=== PATIENT | male | born 1945 | race Caucasian/White ===

== ENCOUNTER → 2016-05-04 | Outpatient (CLI) | payer OTHER ==
[~2016-05-04] MED LIST: ATEN-173 PO; CALC500C3 PO; DXM/4 PO; MULTTAB58 PO; NYSS/ PO; OXYC-57 PO; OXYC15TA89 PO; OXYC20TA50 PO; OXYC7.5T65 PO; PANT40TA PO; POLY335019 PO; REGO40TA PO; SILV1CRE73 TOP; TRIA75TA PO; TRIF0.27 PO; ZNTT/150 PO
--- NOTE | 2016-05-04 09:23 | DIAGNOSTIC IMAGING REPORT ---
CHEST 2 VIEWS ROUTINE HISTORY: Right pleural effusion. Follow-up. COMPARISON: Chest 12/26/2015. FINDINGS: Small right pleural effusion persists. Right basilar airspace opacities have resolved. Small linear scarlike density within the lateral masses of the right lung base remains unchanged. Punctate calcified granulomas within the right lower lobe. No new focal lung consolidations to suggest pneumonia. No pneumothorax. Left subclavian Port-A-Cath terminates in the distal SVC. The heart is normal in size. IMPRESSION: 1. Small right pleural effusion, unchanged. 2. Interval resolution of the right lower lobe airspace opacity. Electronically signed by: Jose Ge M.D. 05/04/2016 9:21 AM Dictated Date/Time: 05/04/2016 9:19 AM
== END | disposition home or self-care (01) ==
LOC: C.RADBBURG 08:59
PROVIDERS: ATTEND Physician Assistant
DX: J90 Pleural effusion, not elsewhere classified (principal)

== ENCOUNTER → 2016-08-15 | Outpatient (CLI) | payer OTHER ==
[~2016-08-15] MED LIST changes: +OPTIRAY 320 IV PRN
--- NOTE | 2016-08-15 17:47 | DIAGNOSTIC IMAGING REPORT ---
CHEST , ABDOMEN AND PELVIS CT WITH CONTRAST CT DOSE: 707.48 mGy.cm HISTORY: Metastatic colon cancer. X TECHNIQUE: Multiaxial CT images of the chest, abdomen and pelvis were performed following the intravenous administration of contrast. Oral contrast was also administered. COMPARISON: Outside hospital chest CT 05/19/2015 and PET/CT 05/02/2015. FINDINGS: The central airways are patent. No pneumothorax. The right pleural effusion has resolved. Multiple scattered irregular nodules seen throughout the lungs consistent with metastatic disease. Dominant nodule seen within the superior segment of the right lower lobe and measures 1.8 cm. The majority of the right lung nodules were obscured on the prior study due to the large pleural effusion. The majority of the left lung nodules are similar to the prior study. There is a new 4 mm nodule within the left upper lobe on image 22 of 65. There is also a new 4 mm nodule within the left lower lobe on image 35. A prominent subcarinal lymph node is not suitably change which measures 12 mm in short axis diameter. No enlarged hilar lymph nodes. There are few bilateral calcified hilar lymph nodes. Multiple scattered pleural nodules within the right lung consistent with metastatic disease. Dominant pleural nodule measures 14 mm. Normal caliber thoracic aorta. The main pulmonary arteries are patent. A left Port-A-Cath terminates in the distal SVC. No hepatic or splenic masses. Bilateral adrenal gland nodules have increased in size. The right adrenal gland nodule measures 14 x 9 mm and the left adrenal gland nodule measures 2.4 x 1.3 cm. A 1.4 cm cyst within the lower pole of the left kidney. Normal right kidney. The pancreas and gallbladder are unremarkable. Normal bladder. No retroperitoneal lymphadenopathy. Large amount well-formed stool seen within the majority of the colon. No evidence for bowel obstruction. Normal appendix. Mild thickening of the rectum. Within the left posterior rectum there is a fingerlike soft tissue extension extending to a focal area of thickening within the left presacral/perirectal space. This measures approximately 12 mm in thickness and 1.7 cm in length. This also appears to have increased in size compared to the prior study. This is consistent with residual tumor and/or metastatic disease. A few colonic diverticula. IMPRESSION: 1. Slight progression of the metastatic disease within the chest, abdomen, pelvis as described above. 2. Specifically, the left lung nodules have increased in number. The right lung nodules and right pleural base nodules have likely increased in number and size. However, direct comparison is difficult due to the large pleural effusion on the prior study. 3. Bilateral adrenal gland nodules have increased in size and likely represent metastatic disease. 4. Slight increase in size in the soft tissue extension from the left posterior rectum to the presacral space. This likely represents residual tumor and/or metastatic disease. Electronically signed by: Jose Ge M.D. 08/15/2016 5:46 PM Dictated Date/Time: 08/15/2016 5:28 PM
== END | disposition home or self-care (01) ==
LOC: C.CTS 15:04
PROVIDERS: ATTEND Nurse Practitioner Family
DX: C18.9 Malignant neoplasm of colon, unspecified (principal); C78.7 Secondary malignant neoplasm of liver and intrahepatic bile duct; C78.01 Secondary malignant neoplasm of right lung

== ENCOUNTER 2016-11-22 12:46 | Emergency (ER) | payer OTHER ==
[~2016-11-22] VITALS: Ht 167.6 cm; Wt 69.9 kg
[~2016-11-22 12:46] MED LIST changes: -NYSS/ PO; -OPTIRAY 320 IV PRN; -OXYC-57 PO; -OXYC20TA50 PO; -REGO40TA PO; -SILV1CRE73 TOP; -TRIF0.27 PO
[2016-11-22 12:55] VITALS: TEMP 36.8; Ht 167.6 cm; Wt 69.9 kg
[2016-11-22] MEDS ORDERED: OXYC20TA50 PO (13:42)
[2016-11-22] MEDS ORDERED: OXYC-57 PO (13:42)
[2016-11-22] MEDS ORDERED: SILV1CRE73 TOP (13:42)
[2016-11-22] MEDS ORDERED: REGO40TA PO (13:42)
[2016-11-22] MEDS ORDERED: NYSS/ PO (13:42)
--- NOTE | 2016-11-22 13:56 | EMERGENCY ROOM VISIT NOTE ---
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 The patient was at home alone this morning and states he was having severe cramping that started in his right hand and almost caused his nails to tear his skin. He thinks this lasted 15-30 minutes and called his daughter at approximately 12pm. The daughter states his speech was incomprehensible except for the word "ambulance". The patient previously had right arm pain that further workup revealed was caused by brain metastasis. The patient completed palliative whole brain radiation in mid September and 3 rectal radiation treatments that were completed in mid October. The patient is currently DNR with palliative care and a hospice assessment has been placed. The patient is having labwork tomorrow and a head CT on Saturday with plans on following with Esther Jimenes. The patient denies any symptoms at this time, denies any arm cramping, headache, shortness of breath, or chest pain. Review of Systems See HPI for pertinent positives and negatives. A total of ten systems were reviewed and were otherwise negative. Past Medical/Surgical History Medical Problems: (1) High cholesterol (2) History of chemotherapy (3) HTN (hypertension) (4) Rectal cancer Surgical Problems: (1) History of shoulder surgery Family History FH: cancer Social History Smoking Status: Unknown if Ever Smoked Alcohol Use: occasionally Drug Use: none Marital Status: Housing Status: lives with family Current/Historical Medications Scheduled Atenolol (Tenormin), 25 MG PO DAILY Dexamethasone (Decadron), 4 MG PO QID Multiple Vitamin (Multivitamin), 1 TAB PO DAILY Oxycodone Hcl (Oxycontin), 20 MG PO Q12 Pantoprazole (Protonix), 40 MG PO DAILY Polyethylene Glycol 3350 (Miralax), 17 GM PO BID Regorafenib (Stivarga), 120 MG PO QAM Silver Sulfadiazine (Silvadene), 1 APPLN TOP BID Scheduled PRN Nystatin (Nystatin Suspension), 1 TSP PO QID PRN for UNDECIDED Oxycodone/Acetaminophen 5MG/325MG (Percocet 5MG/325MG), 1 TABLET PO Q6H PRN for Pain Physical Exam Vital Signs Date Time Temp Pulse Resp B/P (MAP) Pulse Ox O2 Delivery O2 Flow Rate FiO2 11/22/16 15:11 63 22 138/77 99 Room Air 11/22/16 14:28 60 16 136/74 97 Room Air 11/22/16 12:55 36.8 66 18 137/81 96 Room Air 11/22/16 12:55 67 Physical Exam GENERAL: Awake, alert, well-appearing, in no distress HENT: Normocephalic, atraumatic. Oropharynx unremarkable. EYES: Normal conjunctiva. Sclera non-icteric. NECK: Supple. No nuchal rigidity. RESPIRATORY: Clear to auscultation. CARDIAC: Regular rate, normal rhythm. Extremities warm and well perfused. Pulses equal. ABDOMEN: Soft, non-distended. No tenderness to palpation. No rebound or guarding. No masses. RECTAL: Deferred. MUSCULOSKELETAL: Chest examination reveals no tenderness. The back is symmetrical on inspection without obvious abnormality. There is no CVA tenderness to palpation. No joint edema. UPPER EXTREMITIES: Strength 5/5 in RUE, Pulses 2+ in R arm radial artery, No cramping in the right hand, Full ROM of right wrist and shoulder LOWER EXTREMITIES: Calves are equal size bilaterally and non-tender. No edema. No discoloration. NEURO: Normal sensorium. No sensory or motor deficits noted. SKIN: No rash or jaundice noted. Medical Decision & Procedures Laboratory Results 11/22/16 13:20 Red Blood Count 3.33, Mean Corpuscular Volume 98.5, Mean Corpuscular Hemoglobin 35.4, Mean Corpuscular Hemoglobin Concent 36.0, Mean Platelet Volume 9.4, Neutrophils (%) (Auto) 88.0, Lymphocytes (%) (Auto) 3.8, Monocytes (%) (Auto) 5.6, Eosinophils (%) (Auto) 0.0, Basophils (%) (Auto) 0.1, Neutrophils # (Auto) 6.93, Lymphocytes # (Auto) 0.30, Monocytes # (Auto) 0.44, Eosinophils # (Auto) 0.00, Basophils # (Auto) 0.01 11/22/16 13:20 Test 11/22/16 13:20 White Blood Count 7.88 K/uL (4.8-10.8) Red Blood Count 3.33 M/uL (4.7-6.1) Hemoglobin 11.8 g/dL (14.0-18.0) Hematocrit 32.8 % (42-52) Mean Corpuscular Volume 98.5 fL (80-100) Mean Corpuscular Hemoglobin 35.4 pg (25-34) Mean Corpuscular Hemoglobin Concent 36.0 g/dl (32-36) Platelet Count 138 K/uL (130-400) Mean Platelet Volume 9.4 fL (7.4-10.4) Neutrophils (%) (Auto) 88.0 % Lymphocytes (%) (Auto) 3.8 % Monocytes (%) (Auto) 5.6 % Eosinophils (%) (Auto) 0.0 % Basophils (%) (Auto) 0.1 % Neutrophils # (Auto) 6.93 K/uL (1.4-6.5) Lymphocytes # (Auto) 0.30 K/uL (1.2-3.4) Monocytes # (Auto) 0.44 K/uL (0.11-0.59) Eosinophils # (Auto) 0.00 K/uL (0-0.5) Basophils # (Auto) 0.01 K/uL (0-0.2) RDW Standard Deviation 50.0 fL (36.4-46.3) RDW Coefficient of Variation 14.0 % (11.5-14.5) Immature Granulocyte % (Auto) 2.5 % Immature Granulocyte # (Auto) 0.20 K/uL (0.00-0.02) Anion Gap 10.0 mmol/L (3-11) Est Creatinine Clear Calc Drug Dose 86.0 ml/min Estimated GFR () 109.3 Estimated GFR (Non- 94.3 BUN/Creatinine Ratio 40.4 (10-20) Calcium Level 8.2 mg/dl (8.5-10.1) Phosphorus Level 2.5 mg/dl (2.5-4.9) Magnesium Level 2.1 mg/dl (1.8-2.4) Medications Administered Medications (Trade) Dose Ordered Sig/Robinson Route Start Time Stop Time Status Last Admin Dose Admin Sodium Chloride 1,000 ml @ 125 mls/hr Q8H IV 11/22/16 14:15 12/22/16 14:14 11/22/16 14:15 125 MLS/HR ED Course Patient is a 71 year old male with rectal cancer with mets to the brain that presents with right arm cramping 1330: Patient evaluated - No acute complaints at this time 1412: Lab work ordered - CBC, BMP, Magnesium, Phosphorous 1422: Phone Conversation with Esther Jimenes - Discussed patient condition and presenting complaints - Agreed that current workup and treatment appropriate - Unnecessary to pursue further imaging at this time 1500: Lab work reviewed - No elevated WBC - Patient mildly hyponatremia and hypocalcemic - Potassium, Phosphorous, Magnesium wnl - Discussed results with family who are comfortable with the patient being discharged Medical Decision Patient is a 71 year old male with rectal cancer with mets to the brain that presents with right arm cramping Etiologies such as electrolyte abnormalities, brain metastasis, nerve impingement, musculoskeletal injury, TIA, migraine, stroke, as well as others were entertained. Patient was evaluated in the Emergency department and found to have no acute complaints at this time. The patient is currently DNR and in the process of being made hospice care (currently palliative). A discussion was had with his daughter (LAITH) as well as Esther Jimenes (currently managing oncological treatments) who agreed to evaluate basic blood work but would not pursue further imaging at this time. His blood work was unimpressive with mild hyponatremia and hypocalcemia and an elevated BUN showing some mild dehydration but otherwise no other significant abnormalities. The patient given IV fluids while in the Emergency department to help improve his fluid balance. Results were conveyed to the family who agreed on discharge home with upcoming [facility]. The family was told if there is any change in the physical or mental state of the patient they could call Esther Jimenes for further recommendations. Medication Reconcilliation Current Medication List: was personally reviewed by ak Blood Pressure Screening Patient's blood pressure: Normal blood pressure Impression Primary Impression: Arm pain, right Additional Impression: Metastatic adenocarcinoma to brain Departure Information Dispostion Home / Self-Care Condition GOOD Referrals Daniella Sanchez M.D. (PCP) Patient Instructions My [facility] Additional Instructions You have been examined and treated today on an emergency basis only. This is not a substitute for, or an effort to provide, complete comprehensive medical care. It is impossible to recognize and treat all injuries or illnesses in a single emergency department visit. It is therefore important that you follow up closely with your physician. Call as soon as possible for an appointment. Return for worsening symptoms or if you develop fever, vomiting, or any other concerning symptoms. Obtain follow up lab work and imaging [facility] Ibuprofen(Motrin, Advil) may be used for pain. Use 600mg every six hours as needed. Take with food. Avoid using more than 2400mg in a 24 hour period. Do not use 2400mg per day for more than three consecutive days without physician direction. Prolonged inappropriate use can lead to stomach upset or ulcers. (AND/OR) Acetaminophen(Tylenol) may be used for fever or pain. Use 1000mg every six hours as needed. Avoid using more than 4000mg in a 24 hour period. Rest and drink plenty of fluids as tolerated. Continue current medications. Return to the ER immediately for worsening or persistent cramping, arm pain, abdominal pain, vomiting, fevers, chest pains, difficulty breathing, worsening of your condition, or as needed. Follow up with your primary physician in 2-3 days for a recheck of your current condition. Resident Tracking Resident Involvement: Resident Care Provided Care Provided: Adult ED Problem Qualifiers
[2016-11-22] MEDS ORDERED: SODIUM CHLORIDE 0.9% 1000ML 1,000 ML IV SCH (14:15)
[2016-11-22 14:38] LABS: BASO % 0.1 %; BASO ABS # 0.01 K/uL (0-0.2); COMPLETE YES; HEMATOCRIT 32.8 % (42-52); IG% 2.5 %; LYMPH % 3.8 %; MEAN CELL VOLUME 98.5 fL (80-100); MEAN CORPUSCULAR HEMOGLOBIN 35.4 pg (25-34); MEAN PLATELET VOLUME 9.4 fL (7.4-10.4); MONO % 5.6 %; PLATELET COUNT 138 K/uL (130-400); RED BLOOD COUNT 3.33 M/uL (4.7-6.1); WHITE BLOOD COUNT 7.88 K/uL (4.8-10.8)
[2016-11-22 14:52] LABS: BUN/CREATININE RATIO 40.4 (10-20); CALCIUM 8.2 mg/dl (8.5-10.1); CREATININE 0.7 mg/dl (0.60-1.40); MAGNESIUM 2.1 mg/dl (1.8-2.4); PHOSPHORUS 2.5 mg/dl (2.5-4.9)
--- NOTE | 2016-11-22 15:50 | EMERGENCY ROOM VISIT NOTE ---
ED Visit Note First contact with patient: 13:15 I have personally evaluated this patient examined her and reviewed the pertinent labs and data. I have discussed the case with Dr. Arellano, the resident physician and agree with the plan. Please refer to the resident's note. This patient has metastatic rectal cancer with brain metastases. He's had whole brain radiation. He had an episode today where he had arm pain and contracture and it hurt a lot. He was awake during this entire time. There was no definite seizure activity . He's had no fever. He feels fine at present . He had no chest pain or shortness of breath. We did access his a port and hydrated him. Blood work was obtained he remained asymptomatic while he was here his BUN is mildly elevated . He could be a little dehydrated and he has no other significant electrolyte abnormalities which would explain his symptoms. EKG does not suggest any acute coronary syndrome or arrthymia. He is feeling much better. I talked to his daughter at length who is the healthcare power of brisket puller. She is strongly desires to take him home. I offered to CAT scan but they declined at this point he is in the process been placed on hospice. I do not think is likely a seizure he is back to his normal baseline if he has no episodes she should return to the ER. We also discussed the case with his oncology provider and they agree with the plan as well. He will be discharged to home.
[2016-11-22 16:05] VITALS: BP 140/76; PULSE 61; O2SAT 97
== END 2016-11-22 16:05 | disposition home or self-care (01) ==
LOC: EDBD 12:46 → C.EDB 12:47
DX: M79.601 Pain in right arm (principal); C79.31 Secondary malignant neoplasm of brain; E78.00 Pure hypercholesterolemia, unspecified; I10 Essential (primary) hypertension; C20 Malignant neoplasm of rectum

== ENCOUNTER → 2016-12-07 | Outpatient (CLI) | payer OTHER ==
[~2016-12-07] MED LIST changes: -CALC500C3 PO; +NYSS/ PO; +OXYC-57 PO; -OXYC15TA89 PO; +OXYC20TA50 PO; -OXYC7.5T65 PO; +REGO40TA PO; +SILV1CRE73 TOP; -TRIA75TA PO; -ZNTT/150 PO
--- NOTE | 2016-12-07 17:47 | DIAGNOSTIC IMAGING REPORT ---
ULTRASOUND VENOUS DOPPLER ULTRASOUND THE RIGHT LOWER EXTREMITY CLINICAL HISTORY: RIGHT LOWER EXT PAIN AND SWELLING COMPARISON STUDY: No previous studies for comparison. FINDINGS: Real-time and color flow Doppler imaging were performed. Flow was seen within the femoral, popliteal and calf veins with no intraluminal thrombus demonstrated. The saphenous vein is patent. IMPRESSION: No evidence of right lower extremity DVT. Electronically signed by: Rg Pulliam M.D. 12/07/2016 5:45 PM Dictated Date/Time: 12/07/2016 5:45 PM
== END | disposition home or self-care (01) ==
LOC: C.ULTR 17:10
PROVIDERS: ATTEND Nurse Practitioner Family
DX: C18.9 Malignant neoplasm of colon, unspecified (principal); C78.7 Secondary malignant neoplasm of liver and intrahepatic bile duct

== ENCOUNTER → 2016-12-13 | Outpatient (CLI) | payer OTHER ==
[~2016-12-13] MED LIST changes: +CEFT1INJ26 IM; +LEVE500T13 PO; +OXYC-164 PO; +OXYC-292 PO; +OXYC1TAB3 PO; +OXYSR/10; +SENN-61 PO; +TRIA75TA53 PO
[2016-12-13 13:57] VITALS: BP 121/74; PULSE 75; TEMP 36.8; O2SAT 96
--- NOTE | 2016-12-13 15:46 | Radiation Oncology Follow-Up ---
Radiation Oncology Follow-Up Date of Visit Dec 13, 2016. Reason For Visit one month follow up Radiation Completion Date 11/05/16 Diagnosis (1) Rectal cancer Status: Chronic Location: brain and pelvis metastasis Stage: IV History of Present Illness Mr. Caraballo is a 71-year-old gentleman with a well-known history of metastatic rectal cancer. The patient was initially diagnosed in 2012 and was found to have metastatic disease at presentation. He has been treated with multiple regimens of chemotherapy in the [facility]. Most recently he was being treated with Lonsurf underneath the supervision of MIESHA Luna. More recently, the patient was having neurologic symptoms including right upper extremity weakness and some ataxia while standing. The patient did have an MRI of the brain completed on 09/28/2016 which revealed widespread metastatic disease involving at least 15 lesions with vasogenic edema involving bilateral cerebral/cerebellar hemispheres. The patient was started on Decadron 4 mg twice daily. We have been asked to evaluate the patient for consideration of palliative whole brain radiation therapy. We are now seeing the patient in consultation discuss the role of radiation therapy. He underwent radiation to the brain and pelvis. This was done sequentially. He tolerated this well. Interim History Past month he denies any problems with headaches or dizziness. He has had no change in vision. There is been no change in the strength of his arms or legs. He has developed edema in the lower extremities. He did have a venous Doppler of the right leg that was negative. His pain is controlled with OxyContin and breakthrough of Percocet. Pain can get up to level . He notes this mostly at night. He recently had the OxyContin increased to 30 mg every 12 hours. Following the treatment to the pelvis E did not have any difficulty with change in bowel habits in regards to diarrhea. He does have some problems with constipation. Allergies Coded Allergies: Lisinopril (Verified Allergy, Unknown, UNKNOWN, 12/26/15) Adhesives (Verified Adverse Reaction, Intermediate, redness, itching, 12/25) Home Medications Scheduled Atenolol (Tenormin), 25 MG PO DAILY Dexamethasone (Decadron), 4 MG PO BID Multiple Vitamin (Multivitamin), 1 TAB PO DAILY Oxycodone HCl (Oxycontin), 30 MG Q12H Pantoprazole (Protonix), 40 MG PO DAILY Senna (Senokot), 1 TAB PO BID Triamterene/Hctz (Maxzide 75MG/50MG), 0.5 TAB PO DAILY Scheduled PRN Nystatin (Nystatin Suspension), 1 TSP PO QID PRN for UNDECIDED Oxycodone/Acetaminophen 5MG/325MG (Percocet 5MG/325MG), 1 TABLET PO Q6H PRN for Pain Review of Systems Gastrointestinal: Symptoms: WNL Oral: Symptoms: No Problems Respiratory: Symptoms: WNL Urinary: Symptoms: WNL Skin: Symptoms: No Problems Other Skin Symptoms: leg edema pitting 3+ Physical Exam Vital Signs Date Time Temp Pulse Resp B/P (MAP) Pulse Ox O2 Delivery O2 Flow Rate FiO2 12/13/16 13:57 36.8 75 16 121/74 96 Pain: Pain Onset: sinc e started RT Pain Duration: intermet Side: Right Patient Pain Scale: 0 - 10 Initial Pain Intensity: 5.0 Pain Description: Sharp Fatigue: None General Appearance: no apparent distress Eyes: normal inspection, PERRL ENT: normal ENT inspection, hearing grossly normal Respiratory/Chest: lungs clear, no respiratory distress, no accessory muscle use Cardiovascular: regular rate, rhythm, no gallop, no murmur Extremities: + pertinent finding (+2 edema of the right foot and +1 on the left. Minimal edema of the lower leg. Equal strength and coordination of the upper lower extremities.) Neurologic/Psychiatric: no motor/sensory deficits, alert, normal mood/affect Skin: warm/dry Laboratory Studies Test 11/12/16 09:33 11/22/16 13:20 12/03/16 10:35 Total Bilirubin 0.4 mg/dl (0.2-1) 0.6 mg/dl (0.2-1) Aspartate Amino Transferase (AST) 19 U/L (15-37) 59 U/L (15-37) Alanine Aminotransferase (ALT) 30 U/L (12-78) 64 U/L (12-78) Alkaline Phosphatase 51 U/L (45-117) 69 U/L (45-117) Lactate Dehydrogenase 218 U/L (87-241) 387 U/L (87-241) Total Protein 5.8 gm/dl (6.4-8.2) 5.8 gm/dl (6.4-8.2) Albumin 2.7 gm/dl (3.4-5.0) 2.6 gm/dl (3.4-5.0) Globulin 3.1 gm/dl (2.5-4.0) 3.2 gm/dl (2.5-4.0) Albumin/Globulin Ratio 0.9 (0.9-2) 0.8 (0.9-2) Carcinoembryonic Antigen 15.1 ng/ml (0-2.5) 17.4 ng/ml (0-2.5) White Blood Count 7.88 K/uL (4.8-10.8) 7.32 K/uL (4.8-10.8) Red Blood Count 3.33 M/uL (4.7-6.1) 3.30 M/uL (4.7-6.1) Hemoglobin 11.8 g/dL (14.0-18.0) 11.7 g/dL (14.0-18.0) Hematocrit 32.8 % (42-52) 32.9 % (42-52) Mean Corpuscular Volume 98.5 fL (80-100) 99.7 fL (80-100) Mean Corpuscular Hemoglobin 35.4 pg (25-34) 35.5 pg (25-34) Mean Corpuscular Hemoglobin Concent 36.0 g/dl (32-36) 35.6 g/dl (32-36) Platelet Count 138 K/uL (130-400) 137 K/uL (130-400) Mean Platelet Volume 9.4 fL (7.4-10.4) 9.2 fL (7.4-10.4) Neutrophils (%) (Auto) 88.0 % 88.2 % Lymphocytes (%) (Auto) 3.8 % 5.1 % Monocytes (%) (Auto) 5.6 % 2.9 % Eosinophils (%) (Auto) 0.0 % 0.0 % Basophils (%) (Auto) 0.1 % 0.1 % Neutrophils # (Auto) 6.93 K/uL (1.4-6.5) 6.46 K/uL (1.4-6.5) Lymphocytes # (Auto) 0.30 K/uL (1.2-3.4) 0.37 K/uL (1.2-3.4) Monocytes # (Auto) 0.44 K/uL (0.11-0.59) 0.21 K/uL (0.11-0.59) Eosinophils # (Auto) 0.00 K/uL (0-0.5) 0.00 K/uL (0-0.5) Basophils # (Auto) 0.01 K/uL (0-0.2) 0.01 K/uL (0-0.2) RDW Standard Deviation 50.0 fL (36.4-46.3) 54.1 fL (36.4-46.3) RDW Coefficient of Variation 14.0 % (11.5-14.5) 14.8 % (11.5-14.5) Immature Granulocyte % (Auto) 2.5 % 3.7 % Immature Granulocyte # (Auto) 0.20 K/uL (0.00-0.02) 0.27 K/uL (0.00-0.02) Sodium Level 129 mmol/L (136-145) 130 mmol/L (136-145) Potassium Level 4.0 mmol/L (3.5-5.1) 3.9 mmol/L (3.5-5.1) Chloride Level 93 mmol/L (98-107) 93 mmol/L (98-107) Carbon Dioxide Level 26 mmol/L (21-32) 28 mmol/L (21-32) Anion Gap 10.0 mmol/L (3-11) 9.0 mmol/L (3-11) Blood Urea Nitrogen 28 mg/dl (7-18) 26 mg/dl (7-18) Creatinine 0.70 mg/dl (0.60-1.40) 0.72 mg/dl (0.60-1.40) Est Creatinine Clear Calc Drug Dose 86.0 ml/min 85.2 ml/min Estimated GFR () 109.3 108.0 Estimated GFR (Non- 94.3 93.2 BUN/Creatinine Ratio 40.4 (10-20) 35.6 (10-20) Random Glucose 101 mg/dl (70-99) 166 mg/dl (70-99) Calcium Level 8.2 mg/dl (8.5-10.1) 8.2 mg/dl (8.5-10.1) Phosphorus Level 2.5 mg/dl (2.5-4.9) Magnesium Level 2.1 mg/dl (1.8-2.4) Nucleated RBC Absolute Count (auto) 0.02 K/uL (0-0) Nucleated Red Blood Cells % 0.3 % Assessment & Plan Plan: Patient is also seen and examined by Dr. Walker. We discussed the extremity edema. I've asked him to keep his legs elevated. He also needs to walk regularly throughout the day. We reviewed his laboratory studies. He is mildly anemic. He was encouraged to eat foods higher in iron. He will also benefit to increase protein in the diet. He will drink ensure regularly. A follow-up appointment with our office was not given he will continue follow-up with medical oncology and the primary care physician. He or his family member may call if he has any questions or concerns. He is now on hospice care. Assessment & Plan (Attending) ADDENDUM: I agree with note created by Kassi Waite PA-C. I reviewed the patient's chart and information with her. I have examined and evaluated the patient. I reviewed relevant clinical information and answered the patient's and /or family's questions. PSYCHIC READER Total Time In Follow-Up I spent 20 minutes speaking to the patient and performing examination. I spent 15 minutes reviewing information completing this note. Total Time (Attending) In Follow-Up I spent 15 minutes examining and counseling the patient. PSYCHIC READER Copy To Daniella Sanchez M.D.; Esther Jimenes CRNP
== END | disposition home or self-care (01) ==
LOC: C.ONC 13:52
PROVIDERS: ATTEND Physician Assistant Medical
DX: Z08 Encounter for follow-up examination after completed treatment for malignant neoplasm (principal); Z92.3 Personal history of irradiation; Z85.048 Personal history of other malignant neoplasm of rectum, rectosigmoid junction, and anus